=== PATIENT | male | born 2000 | race Caucasian/White ===

== ENCOUNTER → 2021-06-30 | Outpatient (CLI) | payer OTHER | LOC: COL.RAD 06-17 08:00 | DX: K21.00 Gastro-esophageal reflux disease with esophagitis, without bleeding (principal) | CPT/HCPCS: A9541 ==

== ENCOUNTER → 2023-11-23 | Outpatient (CLI) | payer OTHER ==
[~2023-11-23] MED LIST: NS IV SCH; SINCALIDE IV SCH
== END ==
LOC: COL.RAD 09:58
DX: R10.11 Right upper quadrant pain (principal)
CPT/HCPCS: A9537-JZ; J2805